=== PATIENT | female | born 1950 | race Hispanic/Latino ===

== ENCOUNTER 2019-06-15 02:04 | Observation (INO) | payer MEDICARE, OTHER ==
[2019-06-15] MEDS ORDERED: METOPROLOL TARTRATE 5 MG/5 ML INJ IV ONE (02:13)
--- NOTE | 2019-06-15 02:18 | Emergency Department Report ---
<SAMI HERNANDEZ - Last Filed: 06/15/19 06:37> ED Chest Pain HPI - General Stated Complaint: CHEST PAIN Time Seen by Provider: 06/15/19 02:12 - Related Data Home Medications Medication Instructions Recorded Confirmed Last Taken Chlorthalidone [Thalitone] 25 mg PO DAILY 06/15/19 06/15/19 06/14/19 10:00 Ibuprofen [Motrin 800 MG tab] 800 mg PO BID 06/15/19 06/15/19 06/14/19 Levothyroxine [Synthroid] 50 mcg PO DAILY 06/15/19 06/15/19 06/14/19 06:00 clonazePAM [KlonoPIN] 0.5 mg PO DAILY 06/15/19 06/15/19 06/14/19 10:00 Allergies Allergy/AdvReac Type Severity Reaction Status Date / Time levofloxacin [From Levaquin] Allergy Unknown Verified 06/15/19 02:39 nitrofurantoin Allergy Unknown Verified 06/15/19 02:39 [From Macrobid] sulfamethoxazole Allergy Unknown Verified 06/15/19 02:39 [From Bactrim] trimethoprim [From Bactrim] Allergy Unknown Verified 06/15/19 02:39 amoxicillin [From Augmentin] AdvReac Severe Vomiting Verified 06/15/19 12:05 clavulanic acid AdvReac Severe Vomiting Verified 06/15/19 12:04 [From Augmentin] ED Past Medical Hx - Medications Home Medications: Home Medications Medication Instructions Recorded Confirmed Last Taken Type Chlorthalidone [Thalitone] 25 mg PO DAILY 06/15/19 06/15/19 06/14/19 10:00 History Ibuprofen [Motrin 800 MG tab] 800 mg PO BID 06/15/19 06/15/19 06/14/19 History Levothyroxine [Synthroid] 50 mcg PO DAILY 06/15/19 06/15/19 06/14/19 06:00 History clonazePAM [KlonoPIN] 0.5 mg PO DAILY 06/15/19 06/15/19 06/14/19 10:00 History ED Course - Consultations Consultation #1: 06/15/19 06:37 I spoke with the general surgeon automatic centrifugal station operator, Dr Tesfaye, who will consult on the patient regarding the cholecystitis and the patient will be admitted to the medicine/hospitalist service. ED Medical Decision Making - Lab Data Result diagrams: 06/15/19 02:44 06/15/19 02:44 ED Disposition Clinical Impression: Acute cholecystitis, Hypertension Disposition: DC-09 OP ADMIT IP TO THIS HOSP Is pt being admited?: Yes Condition: Fair Time of Disposition: 06:38 <JAMESAYESHA JonesChayito - Last Filed: 06/17/19 06:35> ED Chest Pain HPI - General Source: patient, EMS - History of Present Illness Initial Comments: Patient is 68 years old female with history of hypertension and hypothyroidism. Patient brought to the emergency room via EMS for evaluation of sudden onset of substernal chest pain, heaviness in nature with radiation to the back. Patient found to have a blood pressure of 220/100. He should received aspirin and nitroglycerin by EMS with some improvement in the pain and the blood pressure. Patient denied any headache, neck pain weakness numbness or tingling sensation. No shortness of breath. MD Complaint: chest pain -: Sudden Onset: during rest Pain Location: substernal Pain Radiation: back Quality: heaviness Consistency: intermittent Heart Score - HEART Score History: Moderately suspicious EKG: Non-specific Age: > 65 Risk factors: 1-2 risk factors Troponin: < normal limit HEART Score: 5 - Critical Actions Critical Actions: 4-6 pts:12-16.6% risk of adverse cardiac event. Should be admitted ED Review of Systems ROS: Stated complaint: CHEST PAIN Other details as noted in HPI Comment: All other systems reviewed and negative Constitutional: denies: chills, fever Respiratory: denies: cough, shortness of breath, SOB with exertion Cardiovascular: chest pain. denies: palpitations Gastrointestinal: denies: abdominal pain, nausea, vomiting, diarrhea, constipation, hematemesis, melena, hematochezia Musculoskeletal: denies: back pain Neurological: denies: headache, weakness, numbness, confusion ED Physical Exam - General General appearance: alert, in no apparent distress - Head Head exam: Present: atraumatic, normocephalic, normal inspection - Eye Eye exam: Present: normal appearance, PERRL - ENT ENT exam: Present: normal exam, normal orophraynx, mucous membranes moist - Neck Neck exam: Present: normal inspection, full ROM. Absent: tenderness, meningismus, lymphadenopathy, thyromegaly - Respiratory Respiratory exam: Present: normal lung sounds bilaterally - Cardiovascular Cardiovascular Exam: Present: regular rate, normal rhythm, normal heart sounds - GI/Abdominal GI/Abdominal exam: Present: soft, normal bowel sounds. Absent: distended, tenderness, guarding, rebound, rigid, organomegaly, mass, bruit, pulsatile mass, hernia - Extremities Exam Extremities exam: Present: normal inspection, full ROM, normal capillary refill. Absent: pedal edema, calf tenderness - Back Exam Back exam: Present: normal inspection, full ROM. Absent: CVA tenderness (R), CVA tenderness (L), muscle spasm, paraspinal tenderness, vertebral tenderness - Neurological Exam Neurological exam: Present: alert, oriented X3, CN II-XII intact, normal gait, reflexes normal - Psychiatric Psychiatric exam: Present: normal mood - Skin Skin exam: Present: warm, intact, normal color ED Course Vital Signs 06/15/19 06/15/19 06/15/19 02:19 02:23 02:45 Temperature 98.2 F Pulse Rate 72 67 67 Respiratory 16 Rate Blood Pressure 174/68 Blood Pressure 177/68 [Left] O2 Sat by Pulse 98 Oximetry 06/15/19 06/15/19 06/15/19 03:00 05:00 06:00 Temperature Pulse Rate 56 L 66 64 Respiratory 16 16 15 Rate Blood Pressure 163/65 150/64 173/74 Blood Pressure [Left] O2 Sat by Pulse 96 98 99 Oximetry 06/15/19 06/15/19 06/15/19 07:00 08:59 09:00 Temperature Pulse Rate 60 69 71 Respiratory 15 13 13 Rate Blood Pressure 150/64 163/68 163/68 Blood Pressure [Left] O2 Sat by Pulse 96 98 97 Oximetry 06/15/19 10:00 Temperature Pulse Rate 62 Respiratory 13 Rate Blood Pressure 163/68 Blood Pressure [Left] O2 Sat by Pulse 96 Oximetry ED Medical Decision Making - Lab Data Result diagrams: 06/16/19 05:58 06/16/19 05:58 Critical care attestation.: If time is entered above; I have spent that time in minutes in the direct care of this critically ill patient, excluding procedure time.
--- NOTE | 2019-06-15 02:45 | XRay Report ---
CHEST 1 VIEW 06/15/2019 2:12 AM INDICATION / CLINICAL INFORMATION: Chest Pain. Dull back pain. COMPARISON: 10/04/11 FINDINGS: SUPPORT DEVICES: None. HEART / MEDIASTINUM: No significant abnormality. LUNGS / PLEURA: Suboptimal inspiration but no acute air space or interstitial disease. No pneumothora x. ADDITIONAL FINDINGS: No significant additional findings. IMPRESSION: 1. No acute findings. Signer Name: Laurie Cesar MD Signed: 06/15/2019 2:41 AM Workstation Name: [id number]
[2019-06-15 02:57] LABS: Basophils # (Auto) 0.1 K/mm3 (0.0-0.1); Basophils % (Auto) 0.6 % (0.0-1.8); Eosinophils # (Auto) 0.4 K/mm3 (0.0-0.4); Hematocrit 39.2 % (30.3-42.9); Lymphocytes # (Auto) 1.9 K/mm3 (1.2-5.4); Lymphocytes % (Auto) 15.9 % (13.4-35.0); Mean Corpuscular HGB Conc 33 % (30-34); Mean Corpuscular Volume 90 fl (79-97); Monocytes # (Auto) 0.8 K/mm3 (0.0-0.8); Monocytes % (Auto) 6.9 % (0.0-7.3); Platelet Count 212 K/mm3 (140-440); Red Blood Count 4.39 M/mm3 (3.65-5.03)
[2019-06-15 03:08] LABS: INR 1.01 (0.87-1.13); Partial Thromboplastin Time 26.9 Sec. (24.2-36.6)
[2019-06-15 03:19] LABS: BUN/Creatinine Ratio 31; Blood Urea Nitrogen 28 mg/dL (7-17); Calcium 8.9 mg/dL (8.4-10.2); Hemolysis Index 7
[2019-06-15 04:33] LABS: Bilirubin,Urine NEG (Negative); Blood,Urine NEG (Negative); Color,Urine Straw (Yellow); Mucus,Urine FEW /HPF; Protein,Urine <15 mg/dL mg/dL (Negative); Urobilinogen,Urine < 2.0 mg/dL (<2.0)
--- NOTE | 2019-06-15 04:36 | Cat Scan Report ---
CT ABDOMEN AND PELVIS WITH CONTRAST INDICATION / CLINICAL INFORMATION: abdominal pain. Vomiting. TECHNIQUE: Axial CT images were obtained through the abdomen and pelvis after 100 mL Omnipaque [address] scans at this location are performed using CT dose reduction for ALARA by means of automated exposure control. COMPARISON: None available. FINDINGS: LOWER CHEST: No significant abnormality. LIVER: No significant abnormality. GALLBLADDER: Moderately distended with mucosal enhancement and wall edema. No inflammation. Tiny gall stone in the gallbladder lumen. 7 mm stone which may be impacted in the gallbladder neck. BILE DUCTS: No biliary ductal dilation or stones. PANCREAS: No significant abnormality. SPLEEN: No significant abnormality. ADRENALS: No significant abnormality. RIGHT KIDNEY and URETER: No significant abnormality. LEFT KIDNEY and URETER: No significant abnormality. STOMACH and SMALL BOWEL: No significant abnormality. COLON: Mild sigmoid diverticulosis without inflammation. APPENDIX: Not visualized. PERITONEUM: No free fluid. No free air. No fluid collection. LYMPH NODES: No significant adenopathy. AORTA and ARTERIES: Mild atherosclerotic calcification without acute abnormality. IVC and VEINS: No significant abnormality. URINARY BLADDER: No significant abnormality. REPRODUCTIVE ORGANS: Uterus is absent. No significant adnexal abnormality. ADDITIONAL FINDINGS: None. SKELETAL SYSTEM: No significant abnormality. IMPRESSION: 1. Impacted gallstone in the bladder neck with gallbladder distention and wall edema. Clinical and la boratory correlation for possible cholecystitis is recommended. Signer Name: Laurie Cesar MD Signed: 06/15/2019 4:32 AM Workstation Name: [id number]
[2019-06-15] MEDS ORDERED: metroNIDAZOLE/NS 500 MG/100 ML 500 MG/100 ML BAG IV ONE (04:56)
[2019-06-15] MEDS ORDERED: VANCOMYCIN/NS 1 GM/250 ML 1 GM/250 ML BAG IV ONE (05:30)
--- NOTE | 2019-06-15 06:22 | Ultrasound Report ---
ULTRASOUND ABDOMEN, LIMITED (RIGHT UPPER QUADRANT) INDICATION / CLINICAL INFORMATION: RUQ PAIN, ABNORMAL CT ABD/PEL. COMPARISON: CT dated 06/15/19 FINDINGS: PANCREAS: Visualized portion shows no significant abnormality. LIVER: Liver appears mildly echogenic. GALLBLADDER: Gallbladder is distended. Small gallstone within the gallbladder lumen. The larger galls tone in the gallbladder neck is not well-visualized on this study. Mild gallbladder wall thickening a nd edema measuring 3.7 cm in greatest thickness. BILE DUCTS: No significant abnormality. Common bile duct measures 4.5 mm. FREE FLUID: None. ADDITIONAL FINDINGS: None. IMPRESSION: 1. Distended gallbladder with gallbladder wall thickening/edema. 2. Small gallstone in the gallbladder lumen as seen on CT. The larger gallstone near the gallbladder neck on CT is not well seen on this study. Signer Name: Laurie Cesar MD Signed: 06/15/2019 6:17 AM Workstation Name: [id number]
[2019-06-15 07:08] LABS: Alanine Aminotransferase 18 units/L (7-56); Albumin 3.9 g/dL (3.9-5); Bilirubin,Direct < 0.2 mg/dL (0-0.2)
--- NOTE | 2019-06-15 11:09 | History and Physical Report ---
History of Present Illness Date of examination: 06/15/19 Date of admission: 06/15/19 07:16 Chief complaint: cp History of present illness: 68 years old female with history of hypertension and hypothyroidism who presented to the emergency room via EMS for evaluation of sudden onset of substernal chest pain, heavy pressure quality with radiation to the back. Patient found to have a blood pressure of 220/100 upon arrival to the ER. The pt. received aspirin and nitroglycerin by EMS with some improvement in the pain and the blood pressure. Patient denied any headache, neck pain weakness numbness or tingling sensation. No shortness of breath. Patient denies any cough or cold-like symptoms. Past History Past Medical History: hypertension, hypothyroidism Past Surgical History: No surgical history Social history: no significant social history Medications and Allergies Allergies Allergy/AdvReac Type Severity Reaction Status Date / Time amoxicillin [From Augmentin] Allergy Unknown Verified 06/15/19 02:39 clavulanic acid Allergy Unknown Verified 06/15/19 02:39 [From Augmentin] levofloxacin [From Levaquin] Allergy Unknown Verified 06/15/19 02:39 nitrofurantoin Allergy Unknown Verified 06/15/19 02:39 [From Macrobid] sulfamethoxazole Allergy Unknown Verified 06/15/19 02:39 [From Bactrim] trimethoprim [From Bactrim] Allergy Unknown Verified 06/15/19 02:39 Review of Systems All systems: negative Exam - Constitutional Vitals: Temp Pulse Resp BP Pulse Ox 98.2 F 62 13 163/68 96 06/15/19 02:19 06/15/19 10:00 06/15/19 10:00 06/15/19 10:00 06/15/19 10:00 General appearance: Present: no acute distress, well-nourished - EENT Eyes: Present: PERRL ENT: hearing intact, clear oral mucosa - Neck Neck: Present: supple, normal ROM - Respiratory Respiratory effort: normal Respiratory: bilateral: CTA - Cardiovascular Heart Sounds: Present: S1 & S2. Absent: rub, click - Extremities Extremities: pulses symmetrical, No edema Peripheral Pulses: within normal limits - Abdominal General gastrointestinal: Present: soft, non-tender, non-distended, normal bowel sounds Female genitourinary: Present: normal - Integumentary Integumentary: Present: clear, warm, dry - Musculoskeletal Musculoskeletal: gait normal, strength equal bilaterally - Psychiatric Psychiatric: appropriate mood/affect, intact judgment & insight - Neurologic Neurologic: CNII-XII intact, moves all extremities Results - Labs CBC & Chem 7: 06/15/19 02:44 06/15/19 02:44 Labs: Laboratory Last Values WBC 12.0 K/mm3 (4.5-11.0) H 06/15/19 02:44 RBC 4.39 M/mm3 (3.65-5.03) 06/15/19 02:44 Hgb 13.0 gm/dl (10.1-14.3) 06/15/19 02:44 Hct 39.2 % (30.3-42.9) 06/15/19 02:44 MCV 90 fl (79-97) 06/15/19 02:44 MCH 30 pg (28-32) 06/15/19 02:44 MCHC 33 % (30-34) 06/15/19 02:44 RDW 14.0 % (13.2-15.2) 06/15/19 02:44 Plt Count 212 K/mm3 (140-440) 06/15/19 02:44 Lymph % (Auto) 15.9 % (13.4-35.0) 06/15/19 02:44 [place] % (Auto) 6.9 % (0.0-7.3) 06/15/19 02:44 Eos % (Auto) 3.0 % (0.0-4.3) 06/15/19 02:44 Baso % (Auto) 0.6 % (0.0-1.8) 06/15/19 02:44 Lymph # 1.9 K/mm3 (1.2-5.4) 06/15/19 02:44 [place] # 0.8 K/mm3 (0.0-0.8) 06/15/19 02:44 Eos # 0.4 K/mm3 (0.0-0.4) 06/15/19 02:44 Baso # 0.1 K/mm3 (0.0-0.1) 06/15/19 02:44 Seg Neutrophils % 73.6 % (40.0-70.0) H 06/15/19 02:44 Seg Neutrophils # 8.9 K/mm3 (1.8-7.7) H 06/15/19 02:44 PT 13.2 Sec. (12.2-14.9) 06/15/19 02:44 INR 1.01 (0.87-1.13) 06/15/19 02:44 APTT 26.9 Sec. (24.2-36.6) 06/15/19 02:44 D-Dimer 181.29 ng/mlDDU (0-234) 06/15/19 02:44 Sodium 138 mmol/L (137-145) 06/15/19 02:44 Potassium 3.9 mmol/L (3.6-5.0) 06/15/19 02:44 Chloride 98.8 mmol/L (98-107) 06/15/19 02:44 Carbon Dioxide 28 mmol/L (22-30) 06/15/19 02:44 Anion Gap 15 mmol/L 06/15/19 02:44 BUN 28 mg/dL (7-17) H 06/15/19 02:44 Creatinine 0.9 mg/dL (0.7-1.2) 06/15/19 02:44 Estimated GFR > 60 ml/min 06/15/19 02:44 BUN/Creatinine Ratio 31 % 06/15/19 02:44 Glucose 138 mg/dL (65-100) H 06/15/19 02:44 Calcium 8.9 mg/dL (8.4-10.2) 06/15/19 02:44 Total Bilirubin 0.50 mg/dL (0.1-1.2) 06/15/19 05:41 Direct Bilirubin < 0.2 mg/dL (0-0.2) 06/15/19 05:41 Indirect Bilirubin 0.3 mg/dL 06/15/19 05:41 AST 20 units/L (5-40) 06/15/19 05:41 ALT 18 units/L (7-56) 06/15/19 05:41 Alkaline Phosphatase 92 units/L (35-129) 06/15/19 05:41 Troponin T < 0.010 ng/mL (0.00-0.029) 06/15/19 07:51 Total Protein 7.1 g/dL (6.3-8.2) 06/15/19 05:41 Albumin 3.9 g/dL (3.9-5) 06/15/19 05:41 Albumin/Globulin Ratio 1.2 % 06/15/19 05:41 Lipase 97 units/L (13-60) H 06/15/19 02:44 Urine Color Straw (Yellow) 06/15/19 04:12 Urine Turbidity Clear (Clear) 06/15/19 04:12 Urine pH 7.0 (5.0-7.0) 06/15/19 04:12 Ur Specific [place] 1.029 (1.003-1.030) 06/15/19 04:12 Urine Protein <15 mg/dl mg/dL (Negative) 06/15/19 04:12 Urine Glucose (UA) Neg mg/dL (Negative) 06/15/19 04:12 Urine Ketones Neg mg/dL (Negative) 06/15/19 04:12 Urine Blood Neg (Negative) 06/15/19 04:12 Urine Nitrite Neg (Negative) 06/15/19 04:12 Urine Bilirubin Neg (Negative) 06/15/19 04:12 Urine Urobilinogen < 2.0 mg/dL (<2.0) 06/15/19 04:12 Ur Leukocyte Esterase Sm (Negative) 06/15/19 04:12 Urine WBC (Auto) 3.0 /HPF (0.0-6.0) 06/15/19 04:12 Urine RBC (Auto) 1.0 /HPF (0.0-6.0) 06/15/19 04:12 Urine Mucus Few /HPF 06/15/19 04:12 Assessment and Plan Assessment and plan: Acute cholecystitis. CT scan of the abdomen reveals impacted gallstone in the gallbladder neck with gallbladder distention Ong edema. Surgery consultation pending. Hyponatremia. Start IV normal saline and recheck BMP in the morning. Chest pain. Consult cardiology for further evaluation. Accelerated Hypertension. Resume antihypertensive medications. Hypothyroidism. Continue Synthroid.
[2019-06-15] MEDS ORDERED: ACETAMINOPHEN 325 MG TAB PO PRN (11:10)
[2019-06-15 12:30] LABS: Basophils # (Auto) 0.1 K/mm3 (0.0-0.1); Basophils % (Auto) 0.4 % (0.0-1.8); Eosinophils # (Auto) 0.3 K/mm3 (0.0-0.4); Eosinophils % (Auto) 2.8 % (0.0-4.3); Hematocrit 41.4 % (30.3-42.9); Hemoglobin 13.7 gm/dl (10.1-14.3); Lymphocytes # (Auto) 2.5 K/mm3 (1.2-5.4); Lymphocytes % (Auto) 20.6 % (13.4-35.0); Mean Corpuscular HGB Conc 33 % (30-34); Mean Corpuscular Volume 89 fl (79-97); Monocytes # (Auto) 0.8 K/mm3 (0.0-0.8); Monocytes % (Auto) 6.4 % (0.0-7.3); Platelet Count 221 K/mm3 (140-440); Red Blood Count 4.63 M/mm3 (3.65-5.03); Red Cell Distribution Width 13.9 % (13.2-15.2)
[2019-06-15 12:56] LABS: BUN/Creatinine Ratio 27; Blood Urea Nitrogen 19 mg/dL (7-17); Calcium 9.4 mg/dL (8.4-10.2); Hemolysis Index 10
--- NOTE | 2019-06-15 13:38 | Progress Note ---
Assessment and Plan 68 y/o female admitted secondary to RUQ & epig pain. I episode of vomiting. CT & GB u/s consistent with thickended GB wall and stones. pt currently pain free has not taken any pain meds Abd soft, non tender at present. r/o cholecystitis/biliary colic rec Keep NPO except for ice chips and meds HIDA scan in am f/u labs in am. Chief complaint: cp History of present illness: 68 years old female with history of hypertension and hypothyroidism who presented to the emergency room via EMS for evaluation of sudden onset of substernal chest pain, heavy pressure quality with radiation to the back. Patient found to have a blood pressure of 220/100 upon arrival to the ER. The pt. received aspirin and nitroglycerin by EMS with some improvement in the pain and the blood pressure. Patient denied any headache, neck pain weakness numbness or tingling sensation. No shortness of breath. Patient denies any cough or cold-like symptoms. Past History Past Medical History: hypertension, hypothyroidism Past Surgical History: No surgical history Social history: no significant social history Selected Entries 06/15/19 10:51 Temperature 98.0 F Pulse Rate 69 Respiratory 18 Rate Blood Pressure 141/69 Laboratory Tests 06/15/19 06/15/19 05:41 11:50 WBC 12.2 H Total Bilirubin 0.50 Indirect Bilirubin 0.3 AST 20 ALT 18 Alkaline Phosphatase 92 Objective Vital Signs - 12hr 06/15/19 06/15/19 06/15/19 02:19 02:23 02:45 Temperature 98.2 F Pulse Rate 72 67 67 Respiratory 16 Rate Blood Pressure 174/68 Blood Pressure 177/68 [Left] O2 Sat by Pulse 98 Oximetry 06/15/19 06/15/19 06/15/19 03:00 05:00 06:00 Temperature Pulse Rate 56 L 66 64 Respiratory 16 16 15 Rate Blood Pressure 163/65 150/64 173/74 Blood Pressure [Left] O2 Sat by Pulse 96 98 99 Oximetry 06/15/19 06/15/19 06/15/19 07:00 08:59 09:00 Temperature Pulse Rate 60 69 71 Respiratory 15 13 13 Rate Blood Pressure 150/64 163/68 163/68 Blood Pressure [Left] O2 Sat by Pulse 96 98 97 Oximetry 06/15/19 06/15/19 10:00 10:51 Temperature 98.0 F Pulse Rate 62 69 Respiratory 13 18 Rate Blood Pressure 163/68 141/69 Blood Pressure [Left] O2 Sat by Pulse 96 97 Oximetry - Labs 06/15/19 11:50 06/15/19 11:50 Diabetes panel 06/15/19 06/15/19 06/15/19 Range/Units 02:44 05:41 11:50 Sodium 138 142 (137-145) mmol/L Potassium 3.9 4.2 (3.6-5.0) mmol/L Chloride 98.8 103.9 (98-107) mmol/L Carbon Dioxide 28 26 (22-30) mmol/L BUN 28 H 19 H (7-17) mg/dL Creatinine 0.9 0.7 (0.7-1.2) mg/dL Glucose 138 H 95 (65-100) mg/dL Calcium 8.9 9.4 (8.4-10.2) mg/dL AST 20 (5-40) units/L ALT 18 (7-56) units/L Alkaline Phosphatase 92 (35-129) units/L Total Protein 7.1 (6.3-8.2) g/dL Albumin 3.9 (3.9-5) g/dL Calcium panel 06/15/19 06/15/19 06/15/19 Range/Units 02:44 05:41 11:50 Calcium 8.9 9.4 (8.4-10.2) mg/dL Albumin 3.9 (3.9-5) g/dL Pituitary panel 06/15/19 06/15/19 Range/Units 02:44 11:50 Sodium 138 142 (137-145) mmol/L Potassium 3.9 4.2 (3.6-5.0) mmol/L Chloride 98.8 103.9 (98-107) mmol/L Carbon Dioxide 28 26 (22-30) mmol/L BUN 28 H 19 H (7-17) mg/dL Creatinine 0.9 0.7 (0.7-1.2) mg/dL Glucose 138 H 95 (65-100) mg/dL Calcium 8.9 9.4 (8.4-10.2) mg/dL Adrenal panel 06/15/19 06/15/19 06/15/19 Range/Units 02:44 05:41 11:50 Sodium 138 142 (137-145) mmol/L Potassium 3.9 4.2 (3.6-5.0) mmol/L Chloride 98.8 103.9 (98-107) mmol/L Carbon Dioxide 28 26 (22-30) mmol/L BUN 28 H 19 H (7-17) mg/dL Creatinine 0.9 0.7 (0.7-1.2) mg/dL Glucose 138 H 95 (65-100) mg/dL Calcium 8.9 9.4 (8.4-10.2) mg/dL Total Bilirubin 0.50 (0.1-1.2) mg/dL AST 20 (5-40) units/L ALT 18 (7-56) units/L Alkaline Phosphatase 92 (35-129) units/L Total Protein 7.1 (6.3-8.2) g/dL Albumin 3.9 (3.9-5) g/dL
--- NOTE | 2019-06-15 14:43 | Consultation ---
History of Present Illness Consult date: 06/15/19 Consult reason: chest pain History of present illness: This is a 68 year old woman with a history of hypertension who presented with complaints of chest pain and back pain. A cardiac consultation has been requested for chest pain evaluation. Patient describes pain as epigastric pain associated with vomiting. Chest x-ray shows no acute findings. Cycled troponin are normal and her ECG is benign, normal sinus rhythm. Further evaluation with an abdominal ultrasound reports a thickened gallbladder and small gallstones. Surgical evaluation and workup is in process. Past History Past Medical History: hypertension, hypothyroidism Past Surgical History: No surgical history Social history: no significant social history Medications and Allergies Allergies Allergy/AdvReac Type Severity Reaction Status Date / Time levofloxacin [From Levaquin] Allergy Unknown Verified 06/15/19 02:39 nitrofurantoin Allergy Unknown Verified 06/15/19 02:39 [From Macrobid] sulfamethoxazole Allergy Unknown Verified 06/15/19 02:39 [From Bactrim] trimethoprim [From Bactrim] Allergy Unknown Verified 06/15/19 02:39 amoxicillin [From Augmentin] AdvReac Severe Vomiting Verified 06/15/19 12:05 clavulanic acid AdvReac Severe Vomiting Verified 06/15/19 12:04 [From Augmentin] Home Medications Medication Instructions Recorded Confirmed Last Taken Type Chlorthalidone [Thalitone] 25 mg PO DAILY 06/15/19 06/15/19 06/14/19 10:00 History Ibuprofen [Motrin 800 MG tab] 800 mg PO BID 06/15/19 06/15/19 06/14/19 History Levothyroxine [Synthroid] 50 mcg PO DAILY 06/15/19 06/15/19 06/14/19 06:00 History clonazePAM [KlonoPIN] 0.5 mg PO DAILY 06/15/19 06/15/19 06/14/19 10:00 History Active Meds: Active Medications Acetaminophen (Tylenol) 650 mg PO Q4H PRN PRN Reason: Pain MILD(1-3)/Fever >100.5/GARZA Sodium Chloride (Nacl 0.9% 1000 Ml) 1,000 mls @ 75 mls/hr IV DIRECT CHEYANNE Piperacillin Sod/Tazobactam Sod (Zosyn/Ns 4.5gm/100ml) 4.5 gm in 100 mls @ 200 mls/hr IV Q8HR CHEYANNE; Protocol Morphine Sulfate (Morphine) 2 mg IV Q4H PRN PRN Reason: Pain, Moderate (4-6) Ondansetron HCl (Zofran) 4 mg IV Q8H PRN PRN Reason: Nausea And Vomiting Sodium Chloride (Sodium Chloride Flush Syringe 10 Ml) 10 ml IV BID CHEYANNE Sodium Chloride (Sodium Chloride Flush Syringe 10 Ml) 10 ml IV PRN PRN PRN Reason: LINE FLUSH Sodium Chloride (Sodium Chloride Flush Syringe 10 Ml) 10 ml IV PRN PRN PRN Reason: LINE FLUSH Physical Examination Vital Signs Temp Pulse Resp BP Pulse Ox 98.2 F 72 16 177/68 98 06/15/19 02:19 06/15/19 02:19 06/15/19 02:19 06/15/19 02:19 06/15/19 02:19 General appearance: no acute distress HEENT: Positive: PERRL Neck: Positive: trachea midline Cardiac: Positive: Reg Rate and Rhythm Lungs: Positive: Normal Breath Sounds Neuro: Positive: Grossly Intact Extremities: Absent: edema Results 06/15/19 11:50 06/15/19 11:50 Cardiac Enzymes 06/15/19 Range/Units 05:41 AST 20 (5-40) units/L Coagulation 06/15/19 Range/Units 02:44 PT 13.2 (12.2-14.9) Sec. INR 1.01 (0.87-1.13) APTT 26.9 (24.2-36.6) Sec. CBC 06/15/19 06/15/19 Range/Units 02:44 11:50 WBC 12.0 H 12.2 H (4.5-11.0) K/mm3 RBC 4.39 4.63 (3.65-5.03) M/mm3 Hgb 13.0 13.7 (10.1-14.3) gm/dl Hct 39.2 41.4 (30.3-42.9) % Plt Count 212 221 (140-440) K/mm3 Lymph # 1.9 2.5 (1.2-5.4) K/mm3 [place] # 0.8 0.8 (0.0-0.8) K/mm3 Eos # 0.4 0.3 (0.0-0.4) K/mm3 Baso # 0.1 0.1 (0.0-0.1) K/mm3 Comprehensive Metabolic Panel 06/15/19 06/15/19 06/15/19 Range/Units 02:44 05:41 11:50 Sodium 138 142 (137-145) mmol/L Potassium 3.9 4.2 (3.6-5.0) mmol/L Chloride 98.8 103.9 (98-107) mmol/L Carbon Dioxide 28 26 (22-30) mmol/L BUN 28 H 19 H (7-17) mg/dL Creatinine 0.9 0.7 (0.7-1.2) mg/dL Glucose 138 H 95 (65-100) mg/dL Calcium 8.9 9.4 (8.4-10.2) mg/dL Direct Bilirubin < 0.2 (0-0.2) mg/dL Indirect Bilirubin 0.3 mg/dL AST 20 (5-40) units/L ALT 18 (7-56) units/L Alkaline Phosphatase 92 (35-129) units/L Total Protein 7.1 (6.3-8.2) g/dL Albumin 3.9 (3.9-5) g/dL Assessment and Plan Atypical chest pain Acute cholecystitis abdominal ultrasound reports a thickened gallbladder and small gallstones. Hypertension Hx of Hypothyroidism
--- NOTE | 2019-06-15 16:20 | Nuclear Medicine Report ---
NUCLEAR MEDICINE HEPATOBILIARY SCAN INDICATION: Right upper quadrant abdominal pain, vomiting, rule out acute cholecystitis. TECHNIQUE: Radiotracer: Tc-99m mebrofenin (by IV): 6.0 mCi. Gallbladder Stimulant: None. COMPARISON: Ultrasound right upper quadrant and CT abdomen and pelvis with contrast on 06/15/2019 FINDINGS: Hepatic activity: Normal. Biliary activity: Normal. Common bile duct activity at 10 minutes. Gallbladder activity: Not seen throughout 2 hours of imaging Small bowel activity: Normal at 15 minutes. IMPRESSION: Nonvisualization of the gallbladder on HIDA scan consistent with blockage of the cystic duct/acute c holecystitis. Signer Name: Raghavendra Castelan Jr, MD Signed: 06/15/2019 4:15 PM Workstation Name: [id number]
[2019-06-15] MEDS: PIPERACIL/TAZOBACTA 4.5/NS 100 4.5 GM/100 ML VIAL IV SCH ×2 (16:23→22:00)
[2019-06-15] MEDS: SODIUM CHLORIDE 0.9% 1000 ML 1,000 ML IV SCH (16:23)
[2019-06-16] MEDS: PIPERACIL/TAZOBACTA 4.5/NS 100 4.5 GM/100 ML VIAL IV SCH ×3 (05:17→21:37)
[2019-06-16 06:41] LABS: Basophils # (Auto) 0.1 K/mm3 (0.0-0.1); Basophils % (Auto) 0.7 % (0.0-1.8); Eosinophils # (Auto) 0.5 K/mm3 (0.0-0.4); Eosinophils % (Auto) 5.2 % (0.0-4.3); Hematocrit 39.9 % (30.3-42.9); Hemoglobin 13.6 gm/dl (10.1-14.3); Lymphocytes # (Auto) 1.9 K/mm3 (1.2-5.4); Lymphocytes % (Auto) 21.8 % (13.4-35.0); Mean Corpuscular HGB Conc 34 % (30-34); Mean Corpuscular Volume 89 fl (79-97); Monocytes # (Auto) 0.7 K/mm3 (0.0-0.8); Monocytes % (Auto) 8.2 % (0.0-7.3); Platelet Count 199 K/mm3 (140-440); Red Cell Distribution Width 14.4 % (13.2-15.2)
[2019-06-16 07:10] LABS: Alanine Aminotransferase 16 units/L (7-56); Albumin 3.6 g/dL (3.9-5); BUN/Creatinine Ratio 19; Blood Urea Nitrogen 17 mg/dL (7-17); Calcium 8.8 mg/dL (8.4-10.2); Hemolysis Index 4
[2019-06-16] MEDS: SODIUM CHLORIDE 0.9% 1000 ML 1,000 ML IV SCH (09:40)
--- NOTE | 2019-06-16 09:49 | Progress Note ---
Assessment and Plan Acute cholecystitis Hypertension Hx of Hypothyroidism Conservative cardiac management. Subjective Date of service: 06/16/19 Interval history: Patient is resting in bed comfortably. She denies chest pain and shortness of breath. Objective Vital Signs Temp Pulse Resp BP Pulse Ox 06/16/19 07:47 97.9 F 75 20 151/77 99 06/16/19 04:23 97.7 F 70 17 149/63 96 06/15/19 23:30 97.7 F 70 18 153/66 96 06/15/19 19:14 97.8 F 69 18 147/65 96 06/15/19 16:19 97.5 F L 59 L 18 154/69 99 06/15/19 10:51 98.0 F 69 18 141/69 97 06/15/19 10:00 62 13 163/68 96 - Physical Examination General: No Apparent Distress HEENT: Positive: PERRL Neck: Positive: trachea midline Cardiac: Positive: Reg Rate and Rhythm Lungs: Positive: Normal Breath Sounds Neuro: Positive: Grossly Intact Extremities: Absent: edema - Labs and Meds Cardiac Enzymes 06/16/19 Range/Units 05:58 AST 18 (5-40) units/L CBC 06/15/19 06/16/19 Range/Units 11:50 05:58 WBC 12.2 H 8.7 (4.5-11.0) K/mm3 RBC 4.63 4.50 (3.65-5.03) M/mm3 Hgb 13.7 13.6 (10.1-14.3) gm/dl Hct 41.4 39.9 (30.3-42.9) % Plt Count 221 199 (140-440) K/mm3 Lymph # 2.5 1.9 (1.2-5.4) K/mm3 Evans # 0.8 0.7 (0.0-0.8) K/mm3 Eos # 0.3 0.5 H (0.0-0.4) K/mm3 Baso # 0.1 0.1 (0.0-0.1) K/mm3 Comprehensive Metabolic Panel 06/15/19 06/16/19 Range/Units 11:50 05:58 Sodium 142 142 (137-145) mmol/L Potassium 4.2 4.1 (3.6-5.0) mmol/L Chloride 103.9 104.2 (98-107) mmol/L Carbon Dioxide 26 25 (22-30) mmol/L BUN 19 H 17 (7-17) mg/dL Creatinine 0.7 0.9 (0.7-1.2) mg/dL Glucose 95 88 (65-100) mg/dL Calcium 9.4 8.8 (8.4-10.2) mg/dL AST 18 (5-40) units/L ALT 16 (7-56) units/L Alkaline Phosphatase 88 (35-129) units/L Total Protein 6.7 (6.3-8.2) g/dL Albumin 3.6 L (3.9-5) g/dL
[2019-06-16] MEDS ORDERED: ASPIRIN 81 MG TAB CHEW PO SCH (10:00)
[2019-06-16] MEDS: MORPHINE 2 MG/1 ML INJ IV PRN (12:02)
[2019-06-16] MEDS: ONDANSETRON 4 MG/2 ML INJ IV PRN (12:02)
--- NOTE | 2019-06-16 12:05 | Progress Note ---
Assessment and Plan Pt feeling well without compl. no pain Abd soft, non tender wbc down to 8.7 EFRAIN non vis GB explained to pt that by HIDA, she has acute GB and we can certainly proceed with lap GB at this time. pt however states that she has no pain and would prefer to wait on surgery at this time if she is able to min diet without incident. will attempt low fat cl liq diet. But if pt experiences nausea or pain, then would need to proceed with lap GB at this time Selected Entries 06/16/19 11:41 Temperature 98.2 F Pulse Rate 67 Respiratory 20 Rate Blood Pressure 153/64 Laboratory Tests 06/16/19 06/16/19 05:58 05:58 WBC 8.7 Hgb 13.6 Hct 39.9 Total Bilirubin 1.30 H AST 18 ALT 16 Alkaline Phosphatase 88 Amylase 55 Objective Vital Signs - 12hr 06/16/19 06/16/19 06/16/19 04:23 07:47 11:41 Temperature 97.7 F 97.9 F 98.2 F Pulse Rate 70 75 67 Respiratory 17 20 20 Rate Blood Pressure 149/63 151/77 153/64 O2 Sat by Pulse 96 99 97 Oximetry - Labs 06/16/19 05:58 06/16/19 05:58 Diabetes panel 06/15/19 06/16/19 Range/Units 11:50 05:58 Sodium 142 142 (137-145) mmol/L Potassium 4.2 4.1 (3.6-5.0) mmol/L Chloride 103.9 104.2 (98-107) mmol/L Carbon Dioxide 26 25 (22-30) mmol/L BUN 19 H 17 (7-17) mg/dL Creatinine 0.7 0.9 (0.7-1.2) mg/dL Glucose 95 88 (65-100) mg/dL Calcium 9.4 8.8 (8.4-10.2) mg/dL AST 18 (5-40) units/L ALT 16 (7-56) units/L Alkaline Phosphatase 88 (35-129) units/L Total Protein 6.7 (6.3-8.2) g/dL Albumin 3.6 L (3.9-5) g/dL Calcium panel 06/15/19 06/16/19 Range/Units 11:50 05:58 Calcium 9.4 8.8 (8.4-10.2) mg/dL Albumin 3.6 L (3.9-5) g/dL Pituitary panel 06/15/19 06/16/19 Range/Units 11:50 05:58 Sodium 142 142 (137-145) mmol/L Potassium 4.2 4.1 (3.6-5.0) mmol/L Chloride 103.9 104.2 (98-107) mmol/L Carbon Dioxide 26 25 (22-30) mmol/L BUN 19 H 17 (7-17) mg/dL Creatinine 0.7 0.9 (0.7-1.2) mg/dL Glucose 95 88 (65-100) mg/dL Calcium 9.4 8.8 (8.4-10.2) mg/dL Adrenal panel 06/15/19 06/16/19 Range/Units 11:50 05:58 Sodium 142 142 (137-145) mmol/L Potassium 4.2 4.1 (3.6-5.0) mmol/L Chloride 103.9 104.2 (98-107) mmol/L Carbon Dioxide 26 25 (22-30) mmol/L BUN 19 H 17 (7-17) mg/dL Creatinine 0.7 0.9 (0.7-1.2) mg/dL Glucose 95 88 (65-100) mg/dL Calcium 9.4 8.8 (8.4-10.2) mg/dL Total Bilirubin 1.30 H (0.1-1.2) mg/dL AST 18 (5-40) units/L ALT 16 (7-56) units/L Alkaline Phosphatase 88 (35-129) units/L Total Protein 6.7 (6.3-8.2) g/dL Albumin 3.6 L (3.9-5) g/dL
--- NOTE | 2019-06-16 12:35 | Consultation ---
REASON FOR CONSULTATION: Rule out acute cholecystitis. HISTORY OF PRESENT ILLNESS: The patient is a pleasant 68-year-old female who presented to the Emergency Room with a chief complaint of epigastric and right upper quadrant abdominal pain radiating to her back as well as some nonspecific chest pain. The patient vomited once. She states this is the first time she has ever experienced these symptoms. PAST MEDICAL HISTORY: Pertinent for hypothyroidism, hypertension, asthma, spinal stenosis, arthritis and anxiety. PAST SURGICAL HISTORY: Status post left rotator cuff surgery as well as oral surgery. ALLERGIES: ALLERGIC TO AUGMENTIN AND BACTRIM. THE PATIENT INITIALLY STATED SHE WAS ALLERGIC TO LEVAQUIN, BUT ONLY THE " She has taken regular Levaquin, brand name, and has not experienced any problems. ON FURTHER QUESTIONING, HER ONLY ISSUE WITH THE GENERIC LEVAQUIN WAS NAUSEA, no real allergic reaction. CURRENT MEDICATIONS: Include Synthroid, blood pressure medications, NSAIDs and anxiety medications p.r.n. FAMILY HISTORY: CHF. SOCIAL HISTORY: Denies any smoking or drinking. PHYSICAL EXAMINATION: GENERAL: At this time reveals the patient to be awake, alert, cooperative, in no acute distress. She states she is " at this time, has taken no narcotics. VITAL SIGNS: Show her to be afebrile with a temperature of 98, blood pressure is 141/69, pulse of 69, respirations of 18. ABDOMEN: Examination of the abdomen reveals to be soft and nontender at present. LABORATORY DATA: Her current labs include a CBC, which shows a white count of 12.2, H and H are 13 and 41. Electrolytes are essentially within normal limits. Liver functions are also all within normal limits, including a total bilirubin of 0.5, AST is 20, ALT is 18, alkaline phosphatase is 92. Lipase is just slightly elevated at 97. A CT scan of the abdomen has been performed whose impression reads an impacted gallstone in the bladder neck with gallbladder distention and wall edema. Clinical correlation is suggested, possible cholecystitis. Also, ultrasound was performed. Impression was that of a distended gallbladder with some gallbladder wall thickening and edema. IMPRESSION: At this time is that of a 68-year-old female, recent bout of acute cholecystitis versus biliary colic that clinically is improving. RECOMMENDATION: Keep the patient n.p.o. at this time, except for ice chips and medications. We will order a HIDA scan in the morning. We will also repeat labs in a.m. Further recommendations pending the HIDA scan findings and the patient's clinical reevaluation. I will follow closely with you. Thank you very much for consultation. JOB# [id number] WENDY/SAMUEL
--- NOTE | 2019-06-16 15:52 | Progress Note ---
Assessment and Plan Assessment and plan: --Acute cholecystitis: Surg Rec Cholecystectomy, patient considering Clear liquid diet, --Hyponatremia. Start IV normal saline and recheck BMP in the morning. --Chest pain. Consult cardiology for further evaluation. --Accelerated Hypertension. Resume antihypertensive medications. --Hypothyroidism. Continue Synthroid. --Hyponatremia. Start IV normal saline and recheck BMP in the morning. --Chest pain. Consult cardiology for further evaluation. --Accelerated Hypertension. Resume antihypertensive medications. --Hypothyroidism. Continue Synthroid. --HIDA scan findings reviewed --Surgery following History Interval history: Patient seen and examined medical records reviewed No new events reported by the nursing Patient is on ice chips Denies abdominal pain no nausea vomiting Vital signs reviewed Hospitalist Physical - Constitutional Vitals: Temp Pulse Resp BP Pulse Ox 98.2 F 67 20 153/64 97 06/16/19 11:41 06/16/19 11:41 06/16/19 11:41 06/16/19 11:41 06/16/19 11:41 General appearance: Present: no acute distress, well-nourished, obese - EENT Eyes: Present: PERRL, EOM intact - Neck Neck: Present: supple, normal ROM - Respiratory Respiratory effort: normal Respiratory: bilateral: diminished, negative: rales, rhonchi, wheezing - Cardiovascular Rhythm: regular Heart Sounds: Present: S1 & S2 - Extremities Extremities: no ischemia, No edema - Abdominal General gastrointestinal: soft, non-tender, non-distended, normal bowel sounds - Integumentary Integumentary: Present: clear, warm - Psychiatric Psychiatric: appropriate mood/affect, cooperative - Neurologic Neurologic: CNII-XII intact, moves all extremities Results - Labs CBC & Chem 7: 06/16/19 05:58 06/16/19 05:58 Labs: Laboratory Last Values WBC 8.7 K/mm3 (4.5-11.0) 06/16/19 05:58 RBC 4.50 M/mm3 (3.65-5.03) 06/16/19 05:58 Hgb 13.6 gm/dl (10.1-14.3) 06/16/19 05:58 Hct 39.9 % (30.3-42.9) 06/16/19 05:58 MCV 89 fl (79-97) 06/16/19 05:58 MCH 30 pg (28-32) 06/16/19 05:58 MCHC 34 % (30-34) 06/16/19 05:58 RDW 14.4 % (13.2-15.2) 06/16/19 05:58 Plt Count 199 K/mm3 (140-440) 06/16/19 05:58 Lymph % (Auto) 21.8 % (13.4-35.0) 06/16/19 05:58 Vance % (Auto) 8.2 % (0.0-7.3) H 06/16/19 05:58 Eos % (Auto) 5.2 % (0.0-4.3) H 06/16/19 05:58 Baso % (Auto) 0.7 % (0.0-1.8) 06/16/19 05:58 Lymph # 1.9 K/mm3 (1.2-5.4) 06/16/19 05:58 Vance # 0.7 K/mm3 (0.0-0.8) 06/16/19 05:58 Eos # 0.5 K/mm3 (0.0-0.4) H 06/16/19 05:58 Baso # 0.1 K/mm3 (0.0-0.1) 06/16/19 05:58 Seg Neutrophils % 64.1 % (40.0-70.0) 06/16/19 05:58 Seg Neutrophils # 5.6 K/mm3 (1.8-7.7) 06/16/19 05:58 PT 13.2 Sec. (12.2-14.9) 06/15/19 02:44 INR 1.01 (0.87-1.13) 06/15/19 02:44 APTT 26.9 Sec. (24.2-36.6) 06/15/19 02:44 D-Dimer 181.29 ng/mlDDU (0-234) 06/15/19 02:44 Sodium 142 mmol/L (137-145) 06/16/19 05:58 Potassium 4.1 mmol/L (3.6-5.0) 06/16/19 05:58 Chloride 104.2 mmol/L (98-107) 06/16/19 05:58 Carbon Dioxide 25 mmol/L (22-30) 06/16/19 05:58 Anion Gap 17 mmol/L 06/16/19 05:58 BUN 17 mg/dL (7-17) 06/16/19 05:58 Creatinine 0.9 mg/dL (0.7-1.2) 06/16/19 05:58 Estimated GFR > 60 ml/min 06/16/19 05:58 BUN/Creatinine Ratio 19 % 06/16/19 05:58 Glucose 88 mg/dL (65-100) 06/16/19 05:58 Calcium 8.8 mg/dL (8.4-10.2) 06/16/19 05:58 Total Bilirubin 1.30 mg/dL (0.1-1.2) H 06/16/19 05:58 Direct Bilirubin < 0.2 mg/dL (0-0.2) 06/15/19 05:41 Indirect Bilirubin 0.3 mg/dL 06/15/19 05:41 AST 18 units/L (5-40) 06/16/19 05:58 ALT 16 units/L (7-56) 06/16/19 05:58 Alkaline Phosphatase 88 units/L (35-129) 06/16/19 05:58 Troponin T < 0.010 ng/mL (0.00-0.029) 06/15/19 07:51 Total Protein 6.7 g/dL (6.3-8.2) 06/16/19 05:58 Albumin 3.6 g/dL (3.9-5) L 06/16/19 05:58 Albumin/Globulin Ratio 1.2 % 06/16/19 05:58 Amylase 55 units/L (27-131) 06/16/19 05:58 Lipase 97 units/L (13-60) H 06/15/19 02:44 Urine Color Straw (Yellow) 06/15/19 04:12 Urine Turbidity Clear (Clear) 06/15/19 04:12 Urine pH 7.0 (5.0-7.0) 06/15/19 04:12 Ur Specific [place] 1.029 (1.003-1.030) 06/15/19 04:12 Urine Protein <15 mg/dl mg/dL (Negative) 06/15/19 04:12 Urine Glucose (UA) Neg mg/dL (Negative) 06/15/19 04:12 Urine Ketones Neg mg/dL (Negative) 06/15/19 04:12 Urine Blood Neg (Negative) 06/15/19 04:12 Urine Nitrite Neg (Negative) 06/15/19 04:12 Urine Bilirubin Neg (Negative) 06/15/19 04:12 Urine Urobilinogen < 2.0 mg/dL (<2.0) 06/15/19 04:12 Ur Leukocyte Esterase Sm (Negative) 06/15/19 04:12 Urine WBC (Auto) 3.0 /HPF (0.0-6.0) 06/15/19 04:12 Urine RBC (Auto) 1.0 /HPF (0.0-6.0) 06/15/19 04:12 Urine Mucus Few /HPF 06/15/19 04:12 Active Medications - Current Medications Current Medications: Generic Name Dose Route Start Last Admin Trade Name Freq PRN Reason Stop Dose Admin Acetaminophen 650 mg 06/15/19 11:10 Tylenol PO Q4H PRN Pain MILD(1-3)/Fever >100.5/GARZA Sodium Chloride 1,000 mls @ 75 mls/hr 06/15/19 12:00 06/16/19 09:40 Nacl 0.9% 1000 Ml IV 75 mls/hr DIRECT CHEYANNE Administration Piperacillin Sod/Tazobactam Sod 4.5 gm in 100 mls @ 200 mls/hr 06/15/19 14:00 06/16/19 05:17 Zosyn/Ns 4.5gm/100ml IV 200 mls/hr Q8HR CHEYANNE Administration Protocol Morphine Sulfate 2 mg 06/15/19 11:10 06/16/19 12:02 Morphine IV 2 mg Q4H PRN Administration Pain, Moderate (4-6) Ondansetron HCl 4 mg 06/15/19 11:10 06/16/19 12:02 Zofran IV 4 mg Q8H PRN Administration Nausea And Vomiting Sodium Chloride 10 ml 06/15/19 22:00 06/16/19 09:34 Sodium Chloride Flush Syringe 10 Ml IV 10 ml BID CHEYANNE Administration Sodium Chloride 10 ml 06/15/19 11:10 Sodium Chloride Flush Syringe 10 Ml IV PRN PRN LINE FLUSH Sodium Chloride 10 ml 06/15/19 11:10 Sodium Chloride Flush Syringe 10 Ml IV PRN PRN LINE FLUSH
[2019-06-17] MEDS: PIPERACIL/TAZOBACTA 4.5/NS 100 4.5 GM/100 ML VIAL IV SCH ×2 (06:18→14:33)
[2019-06-17] MEDS: MORPHINE 2 MG/1 ML INJ IV PRN (06:56)
[2019-06-17] MEDS: ONDANSETRON 4 MG/2 ML INJ IV PRN (06:57)
[2019-06-17 12:42] VITALS: BP 137/62
--- NOTE | 2019-06-17 13:18 | Progress Note ---
Assessment and Plan Pt feeling well. min cl liq diet without compl. eager to go home Abd soft, non tender surgically stable advance to solid low fat diet may d/c from surg perspective if solid diet min Levaquin 500 mg po qd x 7 days rto this Mon Selected Entries 06/17/19 11:22 Temperature 97.9 F Pulse Rate 69 Respiratory 20 Rate Blood Pressure 137/62 Objective Vital Signs - 12hr 06/17/19 06/17/19 06/17/19 04:52 07:40 11:22 Temperature 98.1 F 97.8 F 97.9 F Pulse Rate 72 70 69 Respiratory 17 18 20 Rate Blood Pressure 124/61 131/66 137/62 O2 Sat by Pulse 95 97 97 Oximetry - Labs 06/16/19 05:58 06/16/19 05:58
--- NOTE | 2019-06-17 16:01 | Discharge Summary ---
Providers - Providers Date of Admission: 06/15/19 07:16 Date of discharge: 06/17/19 Attending physician: FAUSTO BENZ 06/15/19 Consult to Cardiac Rehabilitation [CONS] Routine Reason For Exam: Phase I 06/15/19 06:36 Consult to Physician [CONS] Routine Comment: Consulting Provider: ANA PAULA LOPEZ Physician Instructions: Reason For Exam: cholecystitis 06/15/19 11:10 Consult to Cardiology [CONS] Routine Consulting Provider: GRANT GUZMÁN Reason For Exam: cp [facility] Reason for admission: Chest pain,Rt UQ pain Condition: Fair Pertinent studies: CXR CT abd pelvis US abd HIDA scan Hospital course: 68 yr old female patient was admitted through ER with chest pain and RtUQ pain Symptomatically managed,evaluated by surgery ,had CT abd,Abd US and HIDA scan. Patient's symptoms improved,Evaluated by cardiology,no cardiac workup as symptoms resoled Evaluated by surgeon,rec cholecystectomy ,however as symptoms improved ,and patient was tolerating clear liquids,patient opted to have elective cholecystectomy at a later date. Today patient feels better,no new complaints. Cleared by Surgery and cardiolo for discharge and f/u per schedule. Stable at discharge --Acute cholecystitis: Symptoms resolved, Surg Rec Cholecystectomy, patient opted to have surg at a later date, Clear liquid diet, --Hyponatremia. resolved --Chest pain.cardiology evaluated,out pt evaluation after discharge. --Accelerated Hypertension:well controlled Resume antihypertensive medications. --Hypothyroidism. Continue Synthroid. --HIDA scan findings reviewed: out patient cholecystectomy f/u with surgery. Stable at discharge Disposition: DC-01 TO HOME OR SELFCARE Time spent for discharge: 32 min Core Measure Documentation - Palliative Care Palliative Care/ Comfort Measures: Not Applicable - Core Measures Any of the following diagnoses?: none Exam - Constitutional Vitals: Temp Pulse Resp BP Pulse Ox 97.9 F 69 20 137/62 97 06/17/19 11:22 06/17/19 11:22 06/17/19 11:22 06/17/19 11:22 06/17/19 11:22 General appearance: Present: no acute distress, well-nourished - EENT Eyes: Present: PERRL, EOM intact - Neck Neck: Present: supple, normal ROM - Respiratory Respiratory effort: normal Respiratory: bilateral: diminished, negative: rales, rhonchi, wheezing - Cardiovascular Rhythm: regular Heart Sounds: Present: S1 & S2 - Extremities Extremities: no ischemia, No edema - Abdominal General gastrointestinal: Present: soft, non-tender, non-distended, normal bowel sounds - Integumentary Integumentary: Present: clear, warm - Musculoskeletal Musculoskeletal: strength equal bilaterally - Psychiatric Psychiatric: appropriate mood/affect, cooperative - Neurologic Neurologic: moves all extremities Plan Activity: no restrictions Diet: regular Additional Instructions: If you have severe abdominal pain nausea vomiting, contact M.D. or go to emergency room Follow up with: [facility] [Primary Care Provider] - 7 Days ANA PAULA LOPEZ MD [Staff Physician] - 06/22/19 Prescriptions: levoFLOXacin [Levaquin TAB] 500 mg PO QDAY #7 tablet
== END 2019-06-17 16:22 | disposition home or self-care (01) ==
LOC: ED 02:04 → 3B-SURG 07:16 → INTOOBSV 07:16
PROVIDERS: ADMIT Hospitalist; ATTEND Internal Medicine
DX: R07.89 Other chest pain (principal); R11.10 Vomiting, unspecified; N30.00 Acute cystitis without hematuria; E87.1 Hypo-osmolality and hyponatremia; E03.9 Hypothyroidism, unspecified; I10 Essential (primary) hypertension; Z79.899 Other long term (current) drug therapy; Z88.0 Allergy status to penicillin; Z88.1 Allergy status to other antibiotic agents; Z88.8 Allergy status to other drugs, medicaments and biological substances; Z88.2 Allergy status to sulfonamides
CPT/HCPCS: 36415; 71045; 74177; 76705; 78226; 80048; 80053; 80076; 81001; 82150; 83690; 84484; 85025; 85379; 85610; 85730; 87040; 93005; 93010; 96361; 96365; 96366; 96367; 96368; 96375; 96376; 99284; A9537; G0378; J2270; J2405; J2543; J3370; J7030; Q9967